=== PATIENT | female | born 1990 | race African-American/Black ===

== ENCOUNTER 2019-09-22 04:22 | Emergency (ER) | payer OTHER ==
[~2019-09-22] VITALS: Ht 170.2 cm; Wt 84.0 kg
[2019-09-22] MEDS ORDERED: HYDROCODONE/ACETAMINOPHEN 5/325MG TABLET PO ONE (05:15)
[2019-09-22 05:16] VITALS: BP 134/74
== END 2019-09-22 05:16 | disposition home or self-care (01) ==
LOC: ER 04:22
DX: M54.5 Low back pain (principal)
CPT/HCPCS: 99282